=== PATIENT | male | born 1970 | race Caucasian/White ===

== ENCOUNTER 2016-09-11 10:12 | Emergency (ER) | payer SELFPAY ==
--- NOTE | 2016-09-11 10:19 | EDM.PDOC ---
ED HPI GENERAL MEDICAL PROBLEM - General Chief Complaint: Neurological Problem Stated Complaint: SEIZURES Time Seen by Provider: 09/11/16 10:09 Source of Information: Reports: Patient, EMS History Limitations: Reports: No limitations - History of Present Illness INITIAL COMMENTS - FREE TEXT/NARRATIVE: HISTORY AND PHYSICAL: History of present illness: This is a 46-year-old male who presents via ambulance after having an alleged seizure at [facility] today. The patient really cannot give me any history. He doesn't even remember that he was [facility]. He cannot tell me how he felt before the seizure happened or what he fell into. Per EMS he was walking into the store with his sister. She noticed him turn his head and start to have seizure like activity and then he fell forward onto his face. EMS stated that he was post ictal when they arrived. Patient states his face and head are hurting a lot and his left knee is extremely painful. He does state that he has had seizures in the past before and as the last was a couple of years ago. He does not take any medication for this. He has never been seen or evaluated for seizures. He has been in [place] for a couple of months, moved from [place], looking for a job but still has not found work. He does admit to drinking daily and states he has a couple of years and occasionally has shot up her. He did drink yesterday but hasn't had any alcohol today. He denies any known correlation to previous seizures beginning cessation of alcohol drinking. He denies any drug use. He denies any other medical problems. He is not having chest pain or shortness of breath. He denies neck pain or vision changes. No other extremity pain or injury other than the left knee. Review of systems: As per history of present illness and below otherwise all systems reviewed and negative. Past medical history: As per history of present illness and as reviewed below otherwise noncontributory. Surgical history: As per history of present illness and as reviewed below otherwise noncontributory. Social history: No reported history of drug or alcohol abuse. Family history: As per history of present illness and as reviewed below otherwise noncontributory. Physical exam: HEENT: Bruising to the right side of the face over the cheek. EOMs intact. Normal pupils and conjunctiva. Dried blood on face and in right nostril. No septal hematoma. Normal mouth, teeth and tongue and lips. No pain in the cervical spine and the patient is moving the neck normally. Lungs: Clear to auscultation, breath sounds equal bilaterally, chest nontender. Heart: Regular rate and rhythm. Abdomen: Soft, nondistended, nontender. Pelvis: Stable nontender. Genitourinary: Deferred. Rectal: Deferred. Extremities: No visible evidence of injury. There is no bruising swelling or deformity. Tender to palpation. Pain with minimal range of motion. Neuro: Awake, alert, oriented. Cranial nerves II through XII unremarkable. Cerebellum unremarkable. Motor and sensory unremarkable throughout. Exam nonfocal. Diagnostics: CT head, facial bones, L knee xray, cbc, cmp, magnesium Therapeutics: Morphine IV, crutches, knee immobilizer Impression: #1: Seizure #2: Facial fracture #3: Patella fracture Plan: I spoke with Dr. Cramer about the facial fractures. She did not feel that any urgent management needed to happen. She recommended Augmentin and avoiding sneezing and blowing the nose and using saline washes. She stated she would have her perception is contact the patient to arrange followup in about a week. When I went in to reevaluate the patient and see any had much more severe bruising and swelling underneath the eye. I also spoke with Dr. Weaver about his seizure. I do not office is related to alcohol or if he has some type of epileptic problem. He has never had EEG or any other neurologic workup. I will advise followup with her in the next several days for further evaluation. Advised alcohol cessation and no driving. The patient states he already does not drive. We'll give Augmentin and [place] and knee immobilizer and crutches and information for the restless that he needs to followup with. The patient did not have any questions or concerns and was comfortable with our discussion and verbalized understanding of the plan. Definitive disposition and diagnosis as appropriate pending reevaluation and review of above. Right Face Pain Score (Numeric/FACES): 8 - Related Data Allergies Allergy/AdvReac Type Severity Reaction Status Date / Time No Known Allergies Allergy Verified 09/11/16 10:14 ED ROS GENERAL - Review of Systems Review Of Systems: ROS reveals no pertinent complaints other than HPI. ED EXAM, GENERAL - Physical Exam Exam: See Below (See HPI) Course - Vital Signs Last Recorded V/S: Last Vital Signs Temp 37.0 C 09/11/16 11:02 Pulse 104 H 09/11/16 11:02 Resp 18 09/11/16 11:02 BP 157/77 H 09/11/16 11:02 Pulse Ox 96 09/11/16 11:02 - Orders/Labs/Meds Orders: Active Orders 24 hr Category Date Time Status DME for Discharge [COMM] Stat Oth 09/11/16 12:02 Ordered Labs: Laboratory Tests 09/11/16 09/11/16 Range/Units 10:51 10:51 WBC 11.06 H (4.0-11.0) K/uL RBC 4.33 L (4.50-5.90) M/uL Hgb 13.6 (13.0-17.0) g/dL Hct 41.3 (38.0-50.0) % MCV 95.4 (80.0-98.0) fL MCH 31.4 (27.0-32.0) pg MCHC 32.9 (31.0-37.0) g/dL RDW Std Deviation 54.2 (28.0-62.0) fl RDW Coeff of Sabina 16 H (11.0-15.0) % Plt Count 163 (150-400) K/uL MPV 10.00 (7.40-12.00) fL Neut % (Auto) 86.5 H (48.0-80.0) % Lymph % (Auto) 4.6 L (16.0-40.0) % [place] % (Auto) 8.5 (0.0-15.0) % Eos % (Auto) 0.2 (0.0-7.0) % Baso % (Auto) 0.2 (0.0-1.5) % Neut # 9.6 H (1.4-5.7) K/uL Lymph # 0.5 L (0.6-2.4) K/uL [place] # 0.9 H (0.0-0.8) K/uL Eos # 0.0 (0.0-0.7) K/uL Baso # 0.0 (0.0-0.1) K/uL Nucleated RBC % 0.0 /100WBC Nucleated RBCs # 0 K/uL Sodium 137 (136-146) mmol/L Potassium 4.2 (3.5-5.1) mmol/L Chloride 105 (98-110) mmol/L Carbon Dioxide 24 (21-31) mmol/L BUN 11 (6.0-23.0) mg/dL Creatinine 0.8 (0.6-1.5) mg/dL Est Cr Clr Drug Dosing 107.33 mL/min Estimated GFR (MDRD) > 60.0 ml/min Glucose 112 H (60-110) mg/dL Calcium 9.2 (8.8-10.8) mg/dL Magnesium 1.3 L (1.5-2.3) mEq/L Total Bilirubin 0.7 (0.1-1.5) mg/dL AST 45 H (5-40) IU/L ALT 31 (8-54) IU/L Alkaline Phosphatase 82 (40-150) Total Protein 7.5 (6.0-8.0) g/dL Albumin 4.1 (3.5-5.0) g/dL Globulin 3.4 (2.0-3.5) g/dL Albumin/Globulin Ratio 1.2 L (1.3-2.8) Meds: Medications Discontinued Medications Generic Name Dose Route Start Last Admin Trade Name Freq PRN Reason Stop Dose Admin Sodium Chloride 1,000 mls @ 999 mls/hr 09/11/16 10:39 09/11/16 10:51 Normal Saline IV 09/11/16 11:39 999 mls/hr STAT ONE Administration Morphine Sulfate 4 mg 09/11/16 10:39 09/11/16 10:56 Morphine IVPUSH 09/11/16 10:40 4 mg ONETIME ONE Administration Departure - Departure Time of Disposition: 12:14 Disposition: Home, Self-Care 01 Condition: good Clinical Impression: Seizure Facial fracture Qualifiers: Encounter type: initial encounter Facial bone/location: unspecified facial bone Fracture type: closed Qualified Code(s): S02.92XA - Unspecified fracture of facial bones, initial encounter for closed fracture Patella fracture Qualifiers: Encounter type: initial encounter Fracture type: closed Fracture morphology: unspecified fracture morphology Fracture alignment: nondisplaced Laterality: left Qualified Code(s): S82.002A - Unspecified fracture of left patella, initial encounter for closed fracture Forms: ED Department Discharge Additional Instructions: The following information is given to patients seen in the emergency department who are being discharged to home. This information is to outline your options for follow-up care. We provide all patients seen in our emergency department with a follow-up referral. The need for follow-up, as well as the timing and circumstances, are variable depending upon the specifics of your emergency department visit. If you don't have a primary care physician on staff, we will provide you with a referral. We always advise you to contact your personal physician following an emergency department visit to inform them of the circumstance of the visit and for follow-up with them and/or the need for any referrals to a consulting specialist. The emergency department will also refer you to a specialist when appropriate. This referral assures that you have the opportunity for follow-up care with a specialist. All of these measure are taken in an effort to provide you with optimal care, which includes your follow-up. Under all circumstances we always encourage you to contact your private physician who remains a resource for coordinating your care. When calling for follow-up care, please make the office aware that this follow-up is from your recent emergency room visit. If for any reason you are refused follow-up, please contact the [facility] Emergency Department at and asked to speak to the emergency department charge nurse. [facility]ty [facility] - Plastic Surgery, Maxillofacial surgery Professional [address], [address] [address] [facility] - Neurology Professional [address], [address] [address] - My Orders Last 24 Hours: My Active Orders 09/11/16 12:02 DME for Discharge [COMM] Stat - Assessment/Plan Last 24 Hours: My Active Orders 09/11/16 12:02 DME for Discharge [COMM] Stat
[2016-09-11] MEDS ORDERED: Sodium Chloride 0.9% 1,000 ML IV ONE (10:39)
[2016-09-11] MEDS ORDERED: Morphine 2 MG/ML Syringe IVPUSH ONE (10:39)
[2016-09-11 11:26] LABS: CHLORIDE,CL 105 mmol/L (98-110); SODIUM,NA 137 mmol/L (136-146)
--- NOTE | 2016-09-11 11:26 | CR ---
EXAMINATION: Left knee HISTORY: Fall COMPARISON: None TECHNIQUE: 3 views FINDINGS: There is a nondisplaced T-shaped fracture through the mid and lower patella. No significan t underlying joint effusion. The remaining osseous structures appear intact. Bone mineralization is normal. IMPRESSION: Nondisplaced patella fracture.
--- NOTE | 2016-09-11 11:43 | CT ---
EXAMINATION: Non contrast CT head and facial bones. Coronal and sagittal reformats. HISTORY: Seizure FINDINGS: Head: No evidence of intra or extra axial hemorrhage, mass, midline shift, hydrocephalus or edema. No hypoattenuation changes in the major vascular territories to suggest acute infarct. No abnormal intracranial calcifications are detected. No evidence of substantial vascular calcifications. Pituitary fossa appears unremarkable. Calvarium is intact. No evidence of skull fracture. Facial bones: The nasal bones appear grossly intact. Right anterior and lateral maxillary wall fract ures are noted. There is a comminuted zygomatic arch fracture also noted. Fractures extend into the inferior orbital wall without herniation of intraorbital contents. The lamina papyracea is intact. N o post septal abnormality noted within the orbits. There is hemorrhage within the right maxillary si nus. There is mild leftward deviation of the nasal sinus. The temporomandibular joints are preserved . The pterygoid plates are intact. The left maxillary and orbital ford appear intact. There is poss ibly a tiny chip fracture at the anterior nasal process. The maxilla appears preserved. The mandible is intact. The visualized cervical spine appears normal. Bone mineralization is normal. IMPRESSION: 1. No acute intracranial abnormality. 2. Right zygomaticomaxillary complex fracture.
[2016-09-11 12:56] VITALS: BP 132/101
== END 2016-09-11 12:54 | disposition home or self-care (01) ==
LOC: MW.ED 10:12
PROC: 2W3MX1Z Immobilization of Left Lower Extremity using Splint (ICD-10-PCS; principal; 2016-09-11)
DX: R56.9 Unspecified convulsions (principal); S02.40CA Maxillary fracture, right side, initial encounter for closed fracture; S02.40EA Zygomatic fracture, right side, initial encounter for closed fracture; S82.002A Unspecified fracture of left patella, initial encounter for closed fracture; W18.39XA Other fall on same level, initial encounter; Y93.89 Activity, other specified; Y92.512 Supermarket, store or market as the place of occurrence of the external cause
CPT/HCPCS: 29505; 36415; 70450; 70486; 73562; 80053; 83735; 85025; 93005; 96361; 96374; 99285; J2270; J7040; 99284

== ENCOUNTER 2016-12-04 15:36 | Emergency (ER) | payer MEDICAID ==
--- NOTE | 2016-12-04 15:55 | EDM.PDOC ---
ED HPI GENERAL MEDICAL PROBLEM - General Chief Complaint: Neuro Symptoms/Deficits Stated Complaint: FELL (NO OTHER DETAILS) Time Seen by Provider: 12/04/16 15:42 - History of Present Illness INITIAL COMMENTS - FREE TEXT/NARRATIVE: HISTORY AND PHYSICAL: History of present illness: Patient is a 46 y/o male who was brought on backboard and c-collar by EMS after sustaining a fall with some loss of consciousness at his house prior to arrival. Patient has a known history of alcohol and tobacco use/abuse and has been drinking today and was noted by family to be sitting in a chair and then he fell off to the right side and had some level of loss of consciousness and EMS was dispatched. Patient has a history of seizures but is unclear from the history whether they are alcohol-related per EMS if he had any seizure behavior as it was not noted. The patient currently did complain of some neck discomfort and no headache chest pain abdominal pain. The patient here in the ED is not very forthcoming with history and initially wanted to refuse any care and is now being more cooperative with me and police are in the room as well. Patient states that he would like his sister to be called to come and pick him up Review of systems: As per history of present illness and below otherwise all systems reviewed and negative. Past medical history: As per history of present illness and as reviewed below otherwise noncontributory. Surgical history: As per history of present illness and as reviewed below otherwise noncontributory. Social history: No reported history of drug or alcohol abuse. Family history: As per history of present illness and as reviewed below otherwise noncontributory. Physical exam: Gen.: Well-developed well-nourished man who is nontoxic from speaking with slurred speech but moving all extremities and up standing with assistance. During the course of the exam the backboard was removed c-collar was maintained HEENT: There are several old areas of injury seen on his scalp and there is some soft tissue swelling at the right superior orbital area is new, there is no palpable bony tenderness of the skull or facial bones, EOMs are intact,, normocephalic, pupils reactive, negative for conjunctival pallor or scleral icterus, mucous membranes moist, throat clear, neck supple, nontender, trachea midline. C-collar is in place and there are no midline step-offs tenderness defects appreciated Lungs: Clear to auscultation, breath sounds equal bilaterally, chest nontender. No defects or deformities are seen Heart: S1S2, regular rate and no overt murmurs are appreciated Abdomen: Soft, nondistended, nontender. Negative for masses or hepatosplenomegaly. NeABS Pelvis: Stable nontender. Genitourinary: Deferred. Rectal: Deferred. Extremities: Atraumatic, full range of motion without defects negative for cords or calf pain. Neurovascular unremarkable. Neuro: Awake, alert, oriented. Cranial nerves II through XII unremarkable. Cerebellum unremarkable. Motor and sensory unremarkable throughout. Exam nonfocal. Back: There are no midline step-offs in the apex of the thoracic or lumbar spine and no evidence of any bruising contusion ecchymosis or soft tissue swelling seen in the back soft tissues Diagnostics: Accu-Chek CT scan of head and C-spine Patient requested left knee x-ray stating that he had a fracture of the patella in the past and it is painful. On my clinical exam there is no swelling bony defect usually warm or palpable deformity but we will do the x-ray. Therapeutics: [] 1645: CT scan of the head was discussed with Dr. Cramer, her plastic surgeon and she will review the CT and see the patient in her clinic. She states that she usually will wait to do any intervention on these fractures until swelling has gone down. She states that her nurse will call the patient with a follow-up appointment. Patient is aware of this conversation and will follow up in the clinic. We will contact the patient's sister to come and milk pickup truck driver the patient Impression: Fall with facial contusion/right facial fractures stable, chronic left knee pain , history of alcohol use/abuse Definitive disposition and diagnosis as appropriate pending reevaluation and review of above. - Related Data Allergies Allergy/AdvReac Type Severity Reaction Status Date / Time No Known Allergies Allergy Verified 09/11/16 10:14 Home Meds: Home Meds Acetaminophen [Tylenol] 12/04/16 [History] Finasteride [Proscar] 12/04/16 [History] Prostate Med 12/04/16 [History] Past Medical History Neurological History: Reports: Seizure - Past Surgical History HEENT Surgical History: Reports: Oral Surgery Social & Family History - Family History Family Medical History: Unobtainable - Tobacco Use Smoking Status *Q: Former Smoker Used Tobacco, but Quit: Yes Month Tobacco Last Used: August 2016 - Caffeine Use Caffeine Use: Reports: Coffee - Recreational Drug Use Recreational Drug Use: No ED ROS GENERAL - Review of Systems Review Of Systems: ROS reveals no pertinent complaints other than HPI. ED EXAM, GENERAL - Physical Exam Exam: See Below (See dictation) Course - Vital Signs Last Recorded V/S: Last Vital Signs Temp 36.6 C 12/04/16 16:00 Pulse 89 12/04/16 16:34 Resp BP 141/82 H 12/04/16 16:34 Pulse Ox 90 L 12/04/16 16:34 - Orders/Labs/Meds Orders: Active Orders 24 hr Category Date Time Status Blood Glucose Check, Bedside [RC] ONETIME Care 12/04/16 15:50 Active Knee 1V or 2V Lt [CR] Stat Exams 12/04/16 16:48 Taken Labs: Laboratory Tests 12/04/16 Range/Units 15:54 POC Glucose 86 (60-110) mg/dL Departure - Departure Time of Disposition: 17:12 Disposition: Home, Self-Care 01 Condition: Good Clinical Impression: Alcohol use disorder Facial fracture due to fall Qualifiers: Encounter type: initial encounter Fracture type: closed Qualified Code(s): S02.92XA - Unspecified fracture of facial bones, initial encounter for closed fracture - Discharge Information Forms: ED Department Discharge Additional Instructions: The following information is given to patients seen in the emergency department who are being discharged to home. This information is to outline your options for follow-up care. We provide all patients seen in our emergency department with a follow-up referral. The need for follow-up, as well as the timing and circumstances, are variable depending upon the specifics of your emergency department visit. If you don't have a primary care physician on staff, we will provide you with a referral. We always advise you to contact your personal physician following an emergency department visit to inform them of the circumstance of the visit and for follow-up with them and/or the need for any referrals to a consulting specialist. The emergency department will also refer you to a specialist when appropriate. This referral assures that you have the opportunity for followup care with a specialist. All of these measure are taken in an effort to provide you with optimal care, which includes your followup. Under all circumstances we always encourage you to contact your private physician who remains a resource for coordinating your care. When calling for followup care, please make the office aware that this follow-up is from your recent emergency room visit. If for any reason you are refused follow-up, please contact the [facility] emergency department at and ask to speak to the emergency department charge nurse. [facility] Primary care- Internal Medicine and Family [address], [place] [address] [facility] Specialty clinic-Plastic Surgery and Hand Surgery Professional Building [address] [place] [address] [address] [place] [address] Use ice to the face where the swelling is and use [id number] medications for pain as needed. Try to reduce and/or stop drinking and please follow-up with your primary care provider for further help with this problem. You will be contacted by the plastic surgery office for a follow-up appointment and any further testing that needs to be done. Return to ER as needed and as discussed - My Orders Last 24 Hours: My Active Orders 12/04/16 15:50 Blood Glucose Check, Bedside [RC] ONETIME 12/04/16 16:48 Knee 1V or 2V Lt [CR] Stat - Assessment/Plan Last 24 Hours: My Active Orders 12/04/16 15:50 Blood Glucose Check, Bedside [RC] ONETIME 12/04/16 16:48 Knee 1V or 2V Lt [CR] Stat
[2016-12-04 16:35] VITALS: BP 141/82
--- NOTE | 2016-12-04 16:35 | CT ---
EXAMINATION: Non contrast CT head. Coronal and sagittal reformats. HISTORY: Pain FINDINGS: No evidence of intra or extra axial hemorrhage, mass, midline shift, hydrocephalus or edema. No hy poattenuation changes in the major vascular territories to suggest acute infarct. No abnormal intracranial calcifications are detected. No evidence of substantial vascular calcifica tions. Right zygomatic arch, right orbital wall, and medial maxillary wall fractures are noted. There is mi ld periorbital soft tissue swelling. There is a fracture component within the anterior right maxilla ry wall. The orbits and globes otherwise appear unremarkable. Pituitary fossa appears unremarkable. Calvarium is intact. No evidence of skull fracture. IMPRESSION: 1. Partially visualized nondisplaced right zygomaticomaxillary complex fracture. 2. No acute intracranial findings.
--- NOTE | 2016-12-04 16:37 | CT ---
EXAMINATION: CT cervical spine HISTORY: Pain COMPARISON: None TECHNIQUE: Axial CT images obtained through the cervical spine. Coronal and sagittal reconstructions obtained. FINDINGS: There is straightening of the normal cervical lordosis. The vertebral body heights appear well maintained. Mild marginal osteophytes are noted. Disc space narrowing is noted at C6-C7. No fra cture or acute osseous abnormality noted within the cervical spine. The prevertebral soft tissues ap pear normal. Emphysematous changes and scarring noted within the lung apices. IMPRESSION: 1. Degenerative changes without acute findings noted within the cervical spine.
--- NOTE | 2016-12-05 09:50 | CR ---
EXAM DATE: 12/04/16 PATIENT'S AGE: 46 Patient: MERYL GLOVER Facility: [place], [place] Site . Site : [id number] Study: XRay Knee [id number]/14/2017 5:03:25 PM Ordering Physician: John Sheffield Final Report: Indication: Pain. Old trauma. Technique: Left knee two views. Comparison: 11/11/2016. Findings: Nondisplaced fracture of the patella demonstrates interval blurring of fracture margins indicative of healing. No evidence of significant displacement. No evidence of acute fracture or dislocation. Nonspecific prepatellar soft tissue swelling. Vascular calcifications. Impression: No acute osseous abnormality. Healing nondisplaced patellar fracture. Nonspecific prepatellar soft tissue swelling. Dictated by Sarthak Ibrahim MD @ 12/04/2016 5:11:48 PM Dictated by: Sarthak Ibrahim MD @ 12/04/2016 17:12:00 (Electronic Signature) Report Signed by Proxy. [facility] HOSPITALDouglas
== END 2016-12-04 17:25 | disposition home or self-care (01) ==
LOC: MW.ED 15:36
DX: S02.40EA Zygomatic fracture, right side, initial encounter for closed fracture (principal); S02.40CA Maxillary fracture, right side, initial encounter for closed fracture; M25.562 Pain in left knee; G89.29 Other chronic pain; F10.10 Alcohol abuse, uncomplicated; Z87.891 Personal history of nicotine dependence; W07.XXXA Fall from chair, initial encounter
CPT/HCPCS: 70450; 70450-26; 72125; 72125-26; 73560-26-LT; 73560-LT; 82962; 99284; 99285-25

== ENCOUNTER 2016-12-16 17:27 | Emergency (ER) | payer MEDICAID ==
[2016-12-16] MEDS ORDERED: Thiamine 200 MG/2 ML MDV IM ONE (17:58)
--- NOTE | 2016-12-16 17:58 | EDM.PDOC ---
ED HPI GENERAL MEDICAL PROBLEM - General Chief Complaint: Neurological Problem Stated Complaint: SEIZURE Time Seen by Provider: 12/16/16 17:40 - History of Present Illness INITIAL COMMENTS - FREE TEXT/NARRATIVE: HISTORY AND PHYSICAL: History of present illness: Patient is a 46 are old male history of alcohol abuse was a prior seizure and syncopal episodes and has scheduled appointment with neurology who presents today after having a witnessed seizure he was drinking today states he had 3-4 shots. He denies any associated trauma nor was any reported on arrival here is awake alert oriented 3 with no complaints on prior visit he has had a complete workup including CT of the brain is unremarkable Review of systems: As per history of present illness and below otherwise all systems reviewed and negative. Past medical history: As per history of present illness and as reviewed below otherwise noncontributory. Surgical history: As per history of present illness and as reviewed below otherwise noncontributory. Social history: No reported history of drug or alcohol abuse. Family history: As per history of present illness and as reviewed below otherwise noncontributory. Physical exam: HEENT: Atraumatic, normocephalic, pupils reactive, negative for conjunctival pallor or scleral icterus, mucous membranes moist, throat clear, neck supple, nontender, trachea midline. Lungs: Clear to auscultation, breath sounds equal bilaterally, chest nontender. Heart: S1S2, regular, negative for clicks, rubs, or JVD. Abdomen: Soft, nondistended, nontender. Negative for masses or hepatosplenomegaly. Negative for costovertebral tenderness. Pelvis: Stable nontender. Genitourinary: Deferred. Rectal: Deferred. Extremities: Atraumatic, negative for cords or calf pain. Neurovascular unremarkable. Neuro: Awake, alert, oriented. Cranial nerves II through XII unremarkable. Cerebellum unremarkable. Motor and sensory unremarkable throughout. Exam nonfocal. Diagnostics: CBC CMP EKG Therapeutics: judge clerk Impression: #1 seizure #2 alcohol abuse Definitive disposition and diagnosis as appropriate pending reevaluation and review of above. - Related Data Allergies Allergy/AdvReac Type Severity Reaction Status Date / Time No Known Allergies Allergy Verified 12/16/16 17:30 Home Meds: Home Meds amLODIPine [Norvasc] 10 mg PO BEDTIME 12/16/16 [History] Past Medical History Cardiovascular History: Reports: Hypertension Gastrointestinal History: Reports: None Neurological History: Reports: Seizure Psychiatric History: Reports: Addiction, Other (See Below) Other Psychiatric History: ETOH - Past Surgical History HEENT Surgical History: Reports: Oral Surgery Social & Family History - Family History Family Medical History: Unobtainable - Tobacco Use Smoking Status *Q: Former Smoker Years of Tobacco use: 15 Packs/Tins Daily: 2 Used Tobacco, but Quit: Yes Month Tobacco Last Used: August 2016 - Caffeine Use Caffeine Use: Reports: Coffee - Recreational Drug Use Recreational Drug Use: No ED ROS GENERAL - Review of Systems Review Of Systems: ROS reveals no pertinent complaints other than HPI. ED EXAM, GENERAL - Physical Exam Exam: See Below (See dictation) Course - Vital Signs Last Recorded V/S: Last Vital Signs Temp 37.1 C 12/16/16 17:46 Pulse 104 H 12/16/16 17:46 Resp 16 12/16/16 17:46 BP 125/87 12/16/16 17:46 Pulse Ox 88 L 12/16/16 17:46 - Orders/Labs/Meds Orders: Active Orders 24 hr Category Date Time Status Cardiac Monitoring [RC] . DIRECTED Care 12/16/16 17:55 Active EKG Documentation Completion [RC] STAT Care 12/16/16 17:55 Active CBC WITH AUTO DIFF [HEME] Stat Lab 12/16/16 17:55 Ordered COMPREHENSIVE METABOLIC PN,CMP [CHEM] Stat Lab 12/16/16 17:55 Ordered Departure - Departure Time of Disposition: 17:57 Disposition: Home, Self-Care 01 Condition: Good Clinical Impression: Seizure disorder, Alcohol abuse - Discharge Information Forms: ED Department Discharge Additional Instructions: The following information is given to patients seen in the emergency department who are being discharged to home. This information is to outline your options for follow-up care. We provide all patients seen in our emergency department with a follow-up referral. The need for follow-up, as well as the timing and circumstances, are variable depending upon the specifics of your emergency department visit. If you don't have a primary care physician on staff, we will provide you with a referral. We always advise you to contact your personal physician following an emergency department visit to inform them of the circumstance of the visit and for follow-up with them and/or the need for any referrals to a consulting specialist. The emergency department will also refer you to a specialist when appropriate. This referral assures that you have the opportunity for followup care with a specialist. All of these measure are taken in an effort to provide you with optimal care, which includes your followup. Under all circumstances we always encourage you to contact your private physician who remains a resource for coordinating your care. When calling for followup care, please make the office aware that this follow-up is from your recent emergency room visit. If for any reason you are refused follow-up, please contact the [facility] emergency department at and asked to speak to the emergency department charge nurse. Follow-up primary medical doctor/neurology as discussed return as needed as discussed - My Orders Last 24 Hours: My Active Orders 12/16/16 17:55 Cardiac Monitoring [RC] . DIRECTED EKG Documentation Completion [RC] STAT CBC WITH AUTO DIFF [HEME] Stat COMPREHENSIVE METABOLIC PN,CMP [CHEM] Stat - Assessment/Plan Last 24 Hours: My Active Orders 12/16/16 17:55 Cardiac Monitoring [RC] . DIRECTED EKG Documentation Completion [RC] STAT CBC WITH AUTO DIFF [HEME] Stat COMPREHENSIVE METABOLIC PN,CMP [CHEM] Stat
[2016-12-16 18:40] LABS: CHLORIDE,CL 103 mmol/L (98-110); SODIUM,NA 137 mmol/L (136-146)
[2016-12-16 18:59] VITALS: BP 130/90
== END 2016-12-16 18:58 | disposition home or self-care (01) ==
LOC: MW.ED 17:27
DX: G40.909 Epilepsy, unspecified, not intractable, without status epilepticus (principal); I10 Essential (primary) hypertension; F10.10 Alcohol abuse, uncomplicated; Z87.891 Personal history of nicotine dependence
CPT/HCPCS: 36415; 80053; 85025; 93005; 96372; 99284; J3411; 99282